=== PATIENT | female | born 1995 | race Caucasian/White ===

== ENCOUNTER 2019-03-25 09:10 | Emergency (ER) | payer OTHER ==
[2019-03-25 09:28] VITALS: BP 109/74; PULSE 63; TEMP 97.8; BMI 19.8
--- NOTE | 2019-03-25 09:53 | PDOC ---
History of Present Illness - General Chief Complaint: Respiratory Stated Complaint: "I THINK I HAVE PNEUMONIA" Time Seen by Provider: 03/25/19 09:52 - History of Present Illness Initial Comments: 03/25/19 10:25 23y/o F no significant medical hx presenting to the ER with weeks of productive cough. She was seen at an urgent care facility 10 days ago where she was prescribed mucinex and benadryl .She has had no relief since treatment. Cough is productive of greenish phlegma and she endorses sensation of nasal congestion. She denies any associated shortness of breath,wheezing, chest pain, fevers, chills, dysuria, hematuria, nausea, vomiting or diarrhea. Past History - Past Medical History Allergies/Adverse Reactions: Allergies Allergy/AdvReac Type Severity Reaction Status Date / Time No Known Allergies Allergy Verified 03/25/19 09:17 Home Medications: Ambulatory Orders Benzonatate [Tessalon Pearls -] 100 mg PO TID #21 capsule 03/25/19 Pseudoephedrine HCl 60 mg PO Q6H PRN #20 tablet MDD 240MG 03/25/19 COPD: No Other medical history: pt denies - Psycho Social/Smoking Cessation Hx Smoking History: Never smoked Hx Alcohol Use: No Drug/Substance Use Hx: No Review of Systems - Review of Systems Comments:: 03/25/19 10:24 GENERAL/CONSTITUTIONAL: No fever or chills. No weakness. HEAD, EYES, EARS, NOSE AND THROAT: No change in vision. No ear pain or discharge. No sore throat. CARDIOVASCULAR: No chest pain or shortness of breath RESPIRATORY: no shortness of breath. GASTROINTESTINAL: No nausea, vomiting, diarrhea GENITOURINARY: No dysuria, frequency, or change in urination. MUSCULOSKELETAL: No joint or muscle swelling or pain. No neck or back pain. SKIN: No rash NEUROLOGIC: No headache, vertigo, loss of consciousness, or change in strength/ sensation. ENDOCRINE: No increased thirst. No abnormal weight change HEMATOLOGIC/LYMPHATIC: No anemia, easy bleeding, or history of blood clots. ALLERGIC/IMMUNOLOGIC: seasonal allergies that are worse in the spring. *Physical Exam - Vital Signs Last Vital Signs Temp Pulse Resp BP Pulse Ox 97.8 F 63 19 109/74 98 03/25/19 09:12 03/25/19 09:12 03/25/19 09:12 03/25/19 09:12 03/25/19 09:12 - Physical Exam Comments: 03/25/19 10:23 GENERAL: Awake, alert, and fully oriented, in no acute distress HEAD: No signs of trauma, normocephalic, atraumatic EYES: PERRLA, EOMI, sclera anicteric, conjunctiva clear ENT: Auricles normal inspection, hearing grossly normal, nares patent, oropharynx clear without exudates. Moist mucosa NECK: Normal ROM, supple, no lymphadenopathy, JVD, or masses LUNGS: No distress, speaks full sentences, clear to auscultation bilaterally HEART: Regular rate and rhythm, normal S1 and S2, no murmurs, rubs or gallops, peripheral pulses normal and equal bilaterally. ABDOMEN: Soft, nontender, normoactive bowel sounds. No guarding, no rebound. No masses EXTREMITIES : Normal inspection, Normal range of motion, no edema. No clubbing or cyanosis NEUROLOGICAL: Cranial nerves II through XII grossly intact. Normal speech, normal gait, no focal sensorimotor deficits SKIN: Warm, Dry, normal turgor, no rashes or lesions noted Medical Decision Making - Medical Decision Making 03/25/19 10:28 23y/o F no significant medical hx presenting to the ER with weeks of productive cough. Pt is afebrile cough has been going on for 3 weeks Chest X-ray ordered results (no lung consolidation ) Pt discharged home with Tessalon perle and pseudoephedrine. Discharge - Discharge Information Problems reviewed: Yes Clinical Impression/Diagnosis: Cough, Nasal congestion Condition: Fair Disposition: HOME - Admission No - Additional Discharge Information Prescriptions: Benzonatate [Tessalon Pearls -] 100 mg PO TID #21 capsule Pseudoephedrine HCl 60 mg PO Q6H PRN #20 tablet MDD 240MG PRN Reason: Cough - Follow up/Referral Referrals: Shannon Gallagher MD [Staff Physician] - - Patient Discharge Instructions Patient Printed Discharge Instructions: Cough, DI for Cough -- Adult Additional Instructions: You were seen in the ER for cough and nasal congestion You have been sent home with prescriptions for medications. Take as directed Return to the ER if -you develop fever and chills. -cough does not improve after treatment - you develop chest pain, nausea or vomiting. - Post Discharge Activity Work/Back to School Note: Back to Work
--- NOTE | 2019-03-25 10:30 | PDOC ---
Attending Attestation - Resident Resident Name: Anabell Lazaro - HPI HPI: 03/25/19 10:43 Pt presents to the ED complaining of a three week history of productive cough without fever. Cough is productive of greenish sputum. Patient is also complaining of post nasal drip and nasal congestion. Denies shortness of breath. Denies prior history of pulmonary disease. - Physicial Exam PE: 03/25/19 10:47 Agree with resident exam. Patient is alert and oriented and in no acute distress. Lungs are clear to auscultation b/l with good air entry. 03/25/19 10:49 - Medical Decision Making 03/25/19 10:50 Pt presents to the ED complaining of cough and post nasal drip without fever. CXr is negative for PNA. Most likely cough caused by post nasal drip. Will treat with antihistamines and tessalon perles and ask to return to the ED for worsening symptosm.
== END 2019-03-25 10:59 | disposition home or self-care (01) ==
LOC: FER 09:10
DX: R05 Cough (principal); R09.89 Other specified symptoms and signs involving the circulatory and respiratory systems
CPT/HCPCS: 71046-TC-FY; 81025; 99281-25

== ENCOUNTER 2019-06-05 09:07 | Emergency (ER) | payer OTHER ==
[2019-06-05 09:12] VITALS: BP 105/59; PULSE 84; TEMP 98.1; BMI 19.5
[2019-06-05] MEDS ORDERED: IBUPROFEN 600 MG TABLET (FP) PO ONE ×2 (09:45→09:52)
--- NOTE | 2019-06-05 09:45 | PDOC ---
History of Present Illness - General Chief Complaint: Cold Symptoms Stated Complaint: FEVER History Source: Patient Exam Limitations: No Limitations - History of Present Illness Initial Comments: 06/05/19 09:40 23-year-old female no past medical history here today complaining of fever which started last night generalized body aches sore throat and myalgia. Denies any recent travel denies any rash no change in mental status. No nausea no vomiting no known sick contacts. Has been tolerating p.o. did take Tylenol flu and cold last night and again at 4 AM was febrile to 101 overnight. No shortness of breath no history of asthma or other lung disease no other complaints Past History - Past Medical History Allergies/Adverse Reactions: Allergies Allergy/AdvReac Type Severity Reaction Status Date / Time No Known Allergies Allergy Verified 06/05/19 09:08 Home Medications: Ambulatory Orders Fluoxetine HCl [Prozac] 5 mg PO DAILY 06/05/19 COPD: No - Psycho Social/Smoking Cessation Hx Smoking History: Never smoked Hx Alcohol Use: No Drug/Substance Use Hx: No Review of Systems - Review of Systems Constitutional: Yes: Fever HEENTM: Yes: Throat Pain. No: Eye Pain Respiratory: Yes: Cough Cardiac (ROS): No: Chest Pain : No: Burning, Incontinence Musculoskeletal: Yes: Back Pain, Joint Pain, Muscle Pain All Other Systems: Reviewed and Negative *Physical Exam - Vital Signs Last Vital Signs Temp Pulse Resp BP Pulse Ox 98.1 F 84 16 105/59 L 100 06/05/19 09:08 06/05/19 09:08 06/05/19 09:08 06/05/19 09:08 06/05/19 09:08 - Physical Exam 06/05/19 09:42 Awake alert no acute distress moist mucous membranes. Throat is without exudates postnasal drip with cobblestoning noted. Shotty lymphadenopathy in the anterior cervical submandibular area. Lungs are clear bilaterally no wheezes no crackles. Heart is regular no murmurs rubs or gallops. Abdomen is soft nontender. Extremities are warm well perfused no edema. Skin is warm and dry no rash patient is overall well-appearing Medical Decision Making - Medical Decision Making 06/05/19 09:42 23-year-old female here today complaining of cough myalgias sore throat and symptoms consistent with the flu. Denies any recent travel. Recommend lots of fluids. Risks and benefits of Tamiflu discussed with the patient will decline at this point. Recommending oral hydration and Motrin Motrin 600 mg given in the ED. Patient is scheduled to fly to [place] recommended no flying until without fever for 24 to 48 hours Discharge - Discharge Information Problems reviewed: Yes Clinical Impression/Diagnosis: Viral syndrome Condition: Good Disposition: HOME - Admission No - Follow up/Referral - Patient Discharge Instructions Patient Printed Discharge Instructions: DI for Viral Upper Respiratory Infection -- Adult, Influenza Additional Instructions: you will be sick for 7 - 10 days. return for shortnes of breath, vomiting, confusion or any concerns. you should take motrin 600 mg every 8 hours as needed for body aches and fever. you can also take tylenol 500 mg every 6 hrs. follow up with your primary doctor. no work or travel until without fever for 48 hours. return for any problems or concenrs. get plenty of rest drink plenty of fluidss. - Post Discharge Activity Work/Back to School Note: Back to Work
== END 2019-06-05 09:57 | disposition home or self-care (01) ==
LOC: FER 09:07
DX: B34.9 Viral infection, unspecified (principal)
CPT/HCPCS: 99282-25